=== PATIENT | male | born 1960 | race Two or more races ===

== ENCOUNTER 2020-09-04 06:20 | Day surgery (SDC) | payer OTHER | END 2020-09-04 14:55 | disposition home or self-care (01) | LOC: AMB-ENDOS 06:20 | PROVIDERS: ATTEND Colon & Rectal Surgery | DX: K62.89 Other specified diseases of anus and rectum (principal); Z20.822 Contact with and (suspected) exposure to COVID-19; K64.1 Second degree hemorrhoids ==

== ENCOUNTER 2022-07-25 08:03 | Outpatient (CLI) | payer OTHER | END 2022-07-25 08:11 | disposition home or self-care (01) | LOC: RX STUDY 08:03 | PROVIDERS: ATTEND Internal Medicine Gastroenterology | DX: K21.9 Gastro-esophageal reflux disease without esophagitis (principal); R13.10 Dysphagia, unspecified ==